=== PATIENT | female | born 1960 | race Caucasian/White ===

== ENCOUNTER 2017-07-06 12:12 | Emergency (ER) | payer OTHER ==
[~2017-07-06] VITALS: Ht 160 cm; Wt 72.0 kg
[2017-07-06 12:30] VITALS: BP 138/81
[2017-07-06] MEDS ORDERED: ondansetron/PF 4mg/2ml inj IV ONE (12:40)
[2017-07-06] MEDS ORDERED: normal saline 1000ML IV soln IVB ONE (12:40)
[2017-07-06] MEDS ORDERED: ondansetron/PF 4mg/2ml inj ONE (12:55)
[2017-07-06 13:13] LABS: BASOPHILS % (AUTO) 0.1 % (0-1); EOSINOPHILS # (AUTO) 0.1 X10'3 (0-0.9); HEMATOCRIT 40.2 % (35.0-45.0); HEMOGLOBIN 13.7 g/dl (12.0-16.0); LYMPHOCYTES # (AUTO) 0.9 X10'3 (1.1-4.8); LYMPHOCYTES % (AUTO) 8.6 % (21-51); MEAN CORPUSCULAR HEMOGLOBIN 29.4 PG (27.0-31.0); MEAN CORPUSCULAR VOLUME 86.5 FL (78-98); MEAN PLATELET VOLUME 8.8 FL (7.4-10.4); MONOCYTES # (AUTO) 0.3 X10'3 (0-0.9); NEUTROPHILS # (AUTO) 8.9 X10'3 (1.8-7.7); NEUTROPHILS % (AUTO) 87.3 % (42-75); PLATELET COUNT 334 X10'3 (140-440); RED BLOOD COUNT 4.65 X10'6 (4.20-5.60); RED CELL DISTRIBUTION WIDTH 15.2 % (11.5-14.5); WHITE BLOOD COUNT 10.1 X10'3 (4.5-11.0)
[2017-07-06 13:35] LABS: ALANINE AMINOTRANSFERASE 32 U/L (12-78); ALBUMIN 4.1 G/DL (3.4-5.0); ALBUMIN/GLOBULIN RATIO 1.1 (1.1-1.5); ALKALINE PHOSPHATASE 71 IU/L (46-116); ANION GAP 13 (8-16); ASPARTATE AMINO TRANSFERASE 22 U/L (10-37); BILIRUBIN,TOTAL 0.4 MG/DL (0.1-1.0); BLOOD UREA NITROGEN 15 MG/DL (7-18); BUN/CREATININE RATIO 16.7 (6.6-38.0); CALCIUM 9.6 MG/DL (8.5-10.1); CHLORIDE 99 MMOL/L (99-107); GLUCOSE 124 MG/DL (70-104); POTASSIUM 3.7 MMOL/L (3.5-5.1); SODIUM 139 MMOL/L (135-145); TOTAL CARBON DIOXIDE 27.5 MMOL/L (24-32); TOTAL PROTEIN 7.8 G/DL (6.4-8.2); eGFR 64 ML/MIN
[2017-07-06 14:03] LABS: CLARITY,URINE SLIGHTLY CLOUDY (Clear); COLOR,URINE YELLOW (Yellow); GLUCOSE, URINE NEGATIVE (Neg); KETONES,URINE 15 mg/dl (Neg); LEUKOCYTE ESTERASE ,URINE TRACE (Neg); NITRITES, URINE NEGATIVE (Neg); OCCULT BLOOD,URINE TRACE-INTACT (Neg); PH,URINE 5.5 (4.8-8.0); PROTEIN,URINE TRACE mg/dl (Neg); UROBILINOGEN,URINE 0.2 E.U/dL (0.2-1.0)
[2017-07-06 14:04] LABS: UA COLLECTION TYPE NON-SPECIFIED
[2017-07-06 14:07] LABS: SQUAMOUS EPITHELIAL CELL,UR MANY /LPF (FEW)
[2017-07-06 14:08] LABS: BACTERIA,URINE 2+ /HPF (Neg); MUCUS STRANDS FEW /LPF (Neg); RBC,URINE 0-2 /HPF (0-2); WBC,URINE 0-4 /HPF (0-4)
[2017-07-06] MEDS ORDERED: ONDA8TAB9 PO (14:22)
== END 2017-07-06 14:30 | disposition home or self-care (01) ==
LOC: ER 12:13
DX: R11.2 Nausea with vomiting, unspecified (principal); R19.7 Diarrhea, unspecified; R42 Dizziness and giddiness; F17.200 Nicotine dependence, unspecified, uncomplicated; Z79.899 Other long term (current) drug therapy
CPT/HCPCS: 36415; 80053; 81001; 85025; 96361; 96374; 99284; J2405; J7030

== ENCOUNTER 2020-03-31 11:30 | Emergency (ER) | payer BC ==
[~2020-03-31] VITALS: Ht 157.5 cm; Wt 72.7 kg
[~2020-03-31 11:30] MED LIST: ONDA8TAB9 PO
[2020-03-31] MEDS ORDERED: normal saline 1000ML IV soln IVB ONE ×2 (12:00→13:20)
[2020-03-31 13:02] LABS: BASOPHILS # (AUTO) 0.1 X10'3 (0-0.2); BASOPHILS % (AUTO) 0.6 % (0-1); EOSINOPHILS % (AUTO) 0.1 % (0-6); HEMATOCRIT 44.8 % (35.0-45.0); HEMOGLOBIN 14.9 g/dl (12.0-16.0); MEAN CORPUSCULAR HEMOGLOBIN 28.8 PG (27.0-31.0); MEAN CORPUSCULAR HGB CONC 33.2 g/dL (33.0-36.5); MEAN CORPUSCULAR VOLUME 86.9 FL (78-98); MEAN PLATELET VOLUME 9.2 FL (7.4-10.4); MONOCYTES # (AUTO) 0.8 X10'3 (0-0.9); MONOCYTES % (AUTO) 6.8 % (2-12); NEUTROPHILS # (AUTO) 8.9 X10'3 (1.8-7.7); NEUTROPHILS % (AUTO) 75.5 % (42-75); PLATELET COUNT 403 X10'3 (140-440); RED BLOOD COUNT 5.15 X10'6 (4.20-5.60); WHITE BLOOD COUNT 11.8 X10'3 (4.5-11.0)
[2020-03-31 13:08] LABS: ALANINE AMINOTRANSFERASE 22 U/L (12-78); ALBUMIN 4.4 G/DL (3.4-5.0); ALBUMIN/GLOBULIN RATIO 1.2 (1.1-1.5); ALKALINE PHOSPHATASE 68 IU/L (46-116); ANION GAP 14 (8-16); ASPARTATE AMINO TRANSFERASE 24 U/L (10-37); BILIRUBIN,TOTAL 0.5 MG/DL (0.1-1.0); BLOOD UREA NITROGEN 20 MG/DL (7-18); BUN/CREATININE RATIO 15.4 (6.6-38.0); CALCIUM 9.8 MG/DL (8.5-10.1); CHLORIDE 96 MMOL/L (99-107); GLUCOSE 132 MG/DL (70-104); LIPASE 316 U/L (73-393); SODIUM 136 MMOL/L (135-145); TOTAL CARBON DIOXIDE 25.6 MMOL/L (24-32); eGFR 42 ML/MIN
[2020-03-31] MEDS ORDERED: potassium Cl 20 mEq SR tablet PO STA (13:16)
[2020-03-31] MEDS ORDERED: potassium Cl 10 mEq/100mL bag IV ONE (13:20)
[2020-03-31] MEDS ORDERED: metoclopramide 5 mg/ml inj IV ONE (14:10)
[2020-03-31 14:23] LABS: CLARITY,URINE SLIGHTLY CLOUDY (Clear); COLOR,URINE YELLOW (Yellow); GLUCOSE, URINE NEGATIVE (Neg); KETONES,URINE TRACE mg/dl (Neg); LEUKOCYTE ESTERASE ,URINE TRACE (Neg); NITRITES, URINE NEGATIVE (Neg); OCCULT BLOOD,URINE NEGATIVE (Neg); PROTEIN,URINE NEGATIVE (Neg); UROBILINOGEN,URINE 0.2 E.U/dL (0.2-1.0)
[2020-03-31 14:24] LABS: UA COLLECTION TYPE CLN CATCH MIDSTREAM
[2020-03-31 14:30] LABS: BACTERIA,URINE 2+ /HPF (Neg); MUCUS STRANDS NONE SEEN /LPF (Neg); RBC,URINE NONE SEEN /HPF (0-2); RENAL CELLS, URINE FEW /HPF; SQUAMOUS EPITHELIAL CELL,UR MODERATE /LPF (FEW)
[2020-03-31] MEDS ORDERED: potassium chloride 10mEq ER tablet PO STA (15:11)
[2020-03-31] MEDS ORDERED: METO5TAB85 PO (15:39)
[2020-03-31 16:27] VITALS: BP 148/71
== END 2020-03-31 16:32 | disposition home or self-care (01) ==
LOC: ER 11:31
DX: R11.2 Nausea with vomiting, unspecified (principal); Z20.822 Contact with and (suspected) exposure to COVID-19; R10.11 Right upper quadrant pain; R51.9 Headache, unspecified; R07.89 Other chest pain; E87.6 Hypokalemia; Z79.899 Other long term (current) drug therapy; Z72.89 Other problems related to lifestyle
CPT/HCPCS: 36415; 80053; 81001; 83690; 84484; 85025; 87088; 87635; 93005; 96361; 96365; 96375; 99285; J2765; J3480; J7030

== ENCOUNTER 2020-04-06 10:27 | Observation (INO) | payer BC ==
[~2020-04-06] VITALS: Ht 152.4 cm; Wt 70.0 kg
[~2020-04-06 10:27] MED LIST changes: +METO5TAB85 PO
[2020-04-06] MEDS ORDERED: ondansetron/PF 4mg/2ml inj IV ONE (10:45)
[2020-04-06] MEDS ORDERED: pantoprazole 40 MG vial IV ONE (10:45)
[2020-04-06] MEDS ORDERED: mag hydrox/Alum hydrox/simeth 30ml oral suspension PO ONE (11:10)
[2020-04-06] MEDS ORDERED: LIDOcaine Viscous 15ml cup MM PRN (11:10)
[2020-04-06 11:26] LABS: BASOPHILS % (AUTO) 0.4 % (0-1); EOSINOPHILS % (AUTO) 0.1 % (0-6); HEMATOCRIT 40.2 % (35.0-45.0); HEMOGLOBIN 13.3 g/dl (12.0-16.0); LYMPHOCYTES # (AUTO) 0.6 X10'3 (1.1-4.8); LYMPHOCYTES % (AUTO) 6.1 % (21-51); MEAN CORPUSCULAR HEMOGLOBIN 28.7 PG (27.0-31.0); MEAN CORPUSCULAR HGB CONC 33.1 g/dL (33.0-36.5); MEAN CORPUSCULAR VOLUME 86.6 FL (78-98); MEAN PLATELET VOLUME 8.7 FL (7.4-10.4); MONOCYTES # (AUTO) 0.2 X10'3 (0-0.9); MONOCYTES % (AUTO) 1.9 % (2-12); NEUTROPHILS # (AUTO) 8.7 X10'3 (1.8-7.7); NEUTROPHILS % (AUTO) 91.5 % (42-75); PLATELET COUNT 361 X10'3 (140-440); RED BLOOD COUNT 4.65 X10'6 (4.20-5.60); RED CELL DISTRIBUTION WIDTH 14.7 % (11.5-14.5); WHITE BLOOD COUNT 9.5 X10'3 (4.5-11.0)
[2020-04-06 11:46] LABS: ALANINE AMINOTRANSFERASE 38 U/L (12-78); ALBUMIN 3.6 G/DL (3.4-5.0); ALBUMIN/GLOBULIN RATIO 1.1 (1.1-1.5); ALKALINE PHOSPHATASE 61 IU/L (46-116); ANION GAP 8 (8-16); ASPARTATE AMINO TRANSFERASE 16 U/L (10-37); BILIRUBIN,TOTAL 0.2 MG/DL (0.1-1.0); BLOOD UREA NITROGEN 13 MG/DL (7-18); BUN/CREATININE RATIO 13.7 (6.6-38.0); CALCIUM 9.3 MG/DL (8.5-10.1); CHLORIDE 103 MMOL/L (99-107); CREATININE 0.95 MG/DL (0.40-0.90); GLUCOSE 163 MG/DL (70-104); LIPASE 92 U/L (73-393); POTASSIUM 3.4 MMOL/L (3.5-5.1); SODIUM 139 MMOL/L (135-145); TOTAL CARBON DIOXIDE 27.8 MMOL/L (24-32); TOTAL PROTEIN 6.9 G/DL (6.4-8.2); eGFR 60 ML/MIN
--- NOTE | 2020-04-06 12:01 | NUR ---
PA NOTIFIED OF BP
[2020-04-06 12:20] LABS: CLARITY,URINE CLOUDY (Clear); COLOR,URINE YELLOW (Yellow); GLUCOSE, URINE NEGATIVE (Neg); KETONES,URINE NEGATIVE (Neg); LEUKOCYTE ESTERASE ,URINE NEGATIVE (Neg); NITRITES, URINE NEGATIVE (Neg); OCCULT BLOOD,URINE NEGATIVE (Neg); PH,URINE 7.5 (4.8-8.0); PROTEIN,URINE TRACE mg/dl (Neg); UROBILINOGEN,URINE 0.2 E.U/dL (0.2-1.0)
[2020-04-06 12:21] LABS: UA COLLECTION TYPE CLN CATCH MIDSTREAM
[2020-04-06 12:30] LABS: MUCUS STRANDS FEW /LPF (Neg); SQUAMOUS EPITHELIAL CELL,UR FEW /LPF (FEW)
[2020-04-06 12:32] LABS: HYALINE CASTS 0-3 /LPF (NEGATIVE)
[2020-04-06 12:33] LABS: AMORPHOUS PHOSPHATES 2+
[2020-04-06 12:34] LABS: BACTERIA,URINE 1+ /HPF (Neg); RBC,URINE 0-2 /HPF (0-2); WBC,URINE 0-4 /HPF (0-4)
[2020-04-06] MEDS ORDERED: aspirin 325mg tablet PO ONE (12:55)
[2020-04-06] MEDS ORDERED: nitroGLYCERIN 1gm ointment UD TP ONE (12:55)
[2020-04-06] MEDS ORDERED: magnesium hydroxide 30ml (MOM) UD suspension PO PRN (13:05)
[2020-04-06] MEDS ORDERED: mag hydrox/Alum hydrox/simeth 30ml oral suspension PO PRN (13:05)
[2020-04-06] MEDS ORDERED: morphine 2 MG/ML inj. syringe IV PRN ×2 (13:05)
[2020-04-06] MEDS ORDERED: ondansetron/PF 4mg/2ml inj IV PRN (13:05)
[2020-04-06] MEDS ORDERED: acetaminophen 325mg tablet PO PRN (13:05)
[2020-04-06] MEDS ORDERED: aminophylline 250mg/10ml inj. IV PRN (13:10)
[2020-04-06] MEDS ORDERED: hydrALAZINE 20mg/ml inj. IV PRN (13:10)
[2020-04-06] MEDS ORDERED: regadenoson 0.4mg/5ml syringe IV ONE (13:10)
[2020-04-06] MEDS ORDERED: nitroGLYCERIN 0.4mg SUBLingual tab SL PRN (13:10)
[2020-04-06] MEDS ORDERED: metoprolol tartrate 1mg/ml inj IV PRN (13:10)
[2020-04-06] MEDS ORDERED: DOXY25TA19 PO (13:27)
[2020-04-06] MEDS: normal saline 1000ml 1,000 ML IV SCH (13:43)
--- NOTE | 2020-04-06 16:30 | NUR ---
ECHO AT BEDSIDE DOING EXAM
--- NOTE | 2020-04-06 17:23 | NUR ---
DR. SOLIS AT BEDSIDE
[2020-04-06] MEDS ORDERED: potassium Cl 20 mEq SR tablet PO PRN ×2 (17:30)
[2020-04-06] MEDS ORDERED: potassium Cl 40MEQ/1/2NS 520ml 520 ML IV PRN ×2 (17:30)
[2020-04-06] MEDS ORDERED: iohexol 350MG/ML 100ml bottle IV ONE (17:43)
--- NOTE | 2020-04-06 18:01 | NUR ---
Patient returned to room from CT.
[2020-04-06] MEDS ORDERED: enalaprilat dihydrate 2.5mg/2ml vial IV PRN (18:05)
[2020-04-06] MEDS: lisinopril 5mg tablet PO SCH (18:15)
[2020-04-06] MEDS: amLODIPine 5mg tablet PO SCH (18:15)
[2020-04-07] VITALS (10 sets, daily range): BP systolic 115–153; BP diastolic 61–76
[2020-04-07] MEDS: normal saline 1000ml 1,000 ML IV SCH ×2 (01:18→09:05)
[2020-04-07 06:41] LABS: BASOPHILS # (AUTO) 0.1 X10'3 (0-0.2); BASOPHILS % (AUTO) 0.6 % (0-1); EOSINOPHILS % (AUTO) 0.2 % (0-6); HEMATOCRIT 35.3 % (35.0-45.0); HEMOGLOBIN 11.8 g/dl (12.0-16.0); LYMPHOCYTES # (AUTO) 1.7 X10'3 (1.1-4.8); LYMPHOCYTES % (AUTO) 17.6 % (21-51); MEAN CORPUSCULAR HEMOGLOBIN 29.1 PG (27.0-31.0); MEAN CORPUSCULAR HGB CONC 33.6 g/dL (33.0-36.5); MEAN CORPUSCULAR VOLUME 86.5 FL (78-98); MEAN PLATELET VOLUME 8.7 FL (7.4-10.4); MONOCYTES # (AUTO) 0.7 X10'3 (0-0.9); MONOCYTES % (AUTO) 7.2 % (2-12); NEUTROPHILS # (AUTO) 7.3 X10'3 (1.8-7.7); NEUTROPHILS % (AUTO) 74.4 % (42-75); PLATELET COUNT 332 X10'3 (140-440); RED BLOOD COUNT 4.07 X10'6 (4.20-5.60); RED CELL DISTRIBUTION WIDTH 14.6 % (11.5-14.5); WHITE BLOOD COUNT 9.9 X10'3 (4.5-11.0)
[2020-04-07 06:56] LABS: ALBUMIN 2.8 G/DL (3.4-5.0); ANION GAP 8 (8-16); BLOOD UREA NITROGEN 9 MG/DL (7-18); BUN/CREATININE RATIO 12.9 (6.6-38.0); CALCIUM 8.4 MG/DL (8.5-10.1); CHLORIDE 105 MMOL/L (99-107); GLUCOSE 118 MG/DL (70-104); POTASSIUM 3.5 MMOL/L (3.5-5.1); SODIUM 138 MMOL/L (135-145); TOTAL CARBON DIOXIDE 24.7 MMOL/L (24-32); eGFR 85 ML/MIN
[2020-04-07] MEDS: K and/or MAG REPLACEMENT MC SCH (07:21)
[2020-04-07] MEDS: amLODIPine 5mg tablet PO SCH (07:26)
[2020-04-07] MEDS: lisinopril 5mg tablet PO SCH (07:27)
[2020-04-07] MEDS ORDERED: pantoprazole 40mg Tablet.DR PO SCH (07:30)
[2020-04-07] MEDS ORDERED: enoxaparin 40mg/0.4ml syringe SUBCUT SCH (08:00)
[2020-04-07] MEDS ORDERED: regadenoson 0.4mg/5ml syringe IV PRN (08:00)
[2020-04-07] MEDS ORDERED: OMEP40CA13 PO (12:57)
[2020-04-07] MEDS ORDERED: LISI-790 PO (12:57)
--- NOTE | 2020-04-07 14:37 | NUR ---
Patient discharge instructions discussed with patient. Instruction included follow up, medication and next dose, risk factors, warning signs and monitoring blood pressure. Patient stated an understanding of these instructions and states she will follow up with PCP. Patient alert, oriented and in no apparent distress at this time. Patient spouse called to come and picker packer patient and was also asked to bring clothing for her. Patient (Edgard) stated that he would be here in about thirty minutes.
--- NOTE | 2020-04-07 14:53 | NUR ---
Medications called into [facility] in [place] per patient request.
--- NOTE | 2020-04-07 16:08 | NUR ---
Patient discharged home via and taken from unit via wheelchair with x1 staff. Patient alert, oriented and in no apparent distress at time of discharge. Patient PIV removed with cannula intact. Tele monitor removed and returned to tele chambers. Patient took all belongings with her upon discharge.
== END 2020-04-07 16:01 | disposition home or self-care (01) ==
LOC: ER 10:28 → ED HOLD 13:03 → EDBEDREQ 18:20 → PCU 3S 19:00
PROVIDERS: ADMIT Family Medicine; ATTEND Family Medicine
DX: R11.2 Nausea with vomiting, unspecified (principal); R07.89 Other chest pain; R10.13 Epigastric pain; I10 Essential (primary) hypertension; R51.9 Headache, unspecified; Z87.891 Personal history of nicotine dependence
CPT/HCPCS: 36415; 70450; 71045; 71275; 74174; 78452; 80048; 80053; 81001; 83690; 84484; 85025; 85610; 93005; 93017; 93306; 96361; 96374; 96375; 99285; A9500; C9113; G0378; J0360; J2270; J2405; J2785; J7030; Q9967